=== PATIENT | male | born 1945 | race Caucasian/White ===

== ENCOUNTER 2020-05-05 08:41 | Day surgery (SDC) | payer MEDICARE, BC ==
[~2020-05-05 08:41] MED LIST: Cefuroxime 10 MG/ML SYRINGE EYERT SCH; Lidocaine 1% PF 2 ML SDV INJECT SCH; Ofloxacin 0.3% Ophth Soln 5 ML Bottle EYERT SCH; Pilocarpine 4% Ophth Soln 15 ML Bot EYERT SCH; Polymyxin B/Trimethoprim 10 ML Bottle EYERT SCH
[2020-05-05] MEDS: Ofloxacin 0.3% Ophth Soln 5 ML Bottle EYERT SCH ×2 (10:08→10:52)
[2020-05-05] MEDS: Brimonidine 0.2% Ophth Soln 5 ML Bottle EYERT SCH ×3 (10:13→12:05)
[2020-05-05] MEDS: Phenylephrine 2.5% Ophth Soln 2 ML Bot EYERT SCH ×5 (10:18→11:40)
[2020-05-05] MEDS: Tropicamide 1% Ophth Soln 15 ML Bottle EYERT SCH ×4 (10:24→11:10)
--- NOTE | 2020-05-05 10:27 | PCM.PREANE ---
Preanesthetic Assessment - Procedure Proposed Procedure: right eye cataract with IOL - Anesthesia/Transfusion/Family Hx Anesthesia History: Prior Anesthesia Reaction (nausea, apnea with inplant procedure) Family History of Anesthesia Reaction: No Transfusion History: No Prior Transfusion(s) - Review of Systems General: No Symptoms Pulmonary: No Symptoms Cardiovascular: No Symptoms Gastrointestinal: Abdominal Pain (hunger pains) Neurological: No Symptoms Other: Reports: None, Diabetes (A1C 6-7 non-insuline) - Physical Assessment NPO Status Date: 05/04/20 NPO Status Time: 22:00 Vital Signs: Last Vital Signs Temp 36.6 C 05/05/20 10:00 Pulse 61 05/05/20 10:00 Resp 16 05/05/20 10:00 BP 134/80 05/05/20 10:00 Pulse Ox 98 05/05/20 10:00 Height: 1.78 m Weight: 77.111 kg ASA Class: 3 Mental Status: Alert & Oriented x3 Airway Class: Mallampati = 1 Dentition: Reports: Normal Dentition Thyro-Mental Finger Breadths: 3 Mouth Opening Finger Breadths: 3 ROM/Head Extension: Full Lungs: Clear to Auscultation, Normal Respiratory Effort Cardiovascular: Regular Rate, Regular Rhythm, Murmurs (systolic) - Allergies Allergies/Adverse Reactions: Allergies Allergy/AdvReac Type Severity Reaction Status Date / Time hydrocodone Allergy Rash Verified 05/04/20 15:48 oxycodone Allergy Rash Verified 05/04/20 15:48 Sulfa (Sulfonamide Allergy Rash Verified 05/04/20 15:48 Antibiotics) - Blood Blood Available: No Product(s) Available: None - Anesthesia Plan Pre-Op Medication Ordered: None - Acknowledgements Anesthesia Type Planned: MAC Pt an Appropriate Candidate for the Planned Anesthesia: Yes Alternatives and Risks of Anesthesia Discussed w Pt/Guardian: Yes Pt/Guardian Understands and Agrees with Anesthesia Plan: Yes PreAnesthesia Questionnaire - SUBSTANCE USE Smoking Status *Q: Former Smoker Tobacco Use Within Last Twelve Months: No Second Hand Smoke Exposure: No Days Per Week of Alcohol Use: 1 Number of Drinks Per Day: 1 Total Drinks Per Week: 1 Recreational Drug Use History: No - HOME MEDS Home Medications: Home Meds Acetaminophen [Tylenol] 650 mg PO Q4H PRN 05/04/20 [History] Aspirin 325 mg PO DAILY 05/04/20 [History] Calcium Carbonate/Vitamin D3 [Calcium 600 + Vit D 200] 1 tab PO DAILY 05/04/20 [History] Carboxymethylcellulose Sodium [Artificial Tears] 1 dose EYEBOTH ASDIRECTED PRN 05/04/20 [History] Multivitamin [Multivitamins] 1 tab PO DAILY 05/04/20 [History] Ramipril 10 mg PO DAILY 05/04/20 [History] amLODIPine [Norvasc] 2.5 mg PO DAILY 05/04/20 [History] atorvaSTATin Calcium [Atorvastatin Calcium] 40 mg PO DAILY 05/04/20 [History] - CURRENT (IN HOUSE) MEDS Current Meds: Current Medications Brimonidine Tartrate (Alphagan 0.2% Ophth Soln) 0 ml EYERT ASDIRECTED NELA Stop: 05/05/20 18:00 Last Admin: 05/05/20 10:13 Dose: 1 drop Documented by: Cefuroxime Sodium (Zinacef) 0 mg EYERT ASDIRECTED NELA Stop: 05/05/20 18:00 Lidocaine HCl (Xylocaine-Mpf 1%) 0 ml INJECT ASDIRECTED NELA Stop: 05/05/20 18:00 Ofloxacin (Ocuflox 0.3% Ophth Soln) 0 ml EYERT ASDIRECTED NELA Stop: 05/05/20 18:00 Last Admin: 05/05/20 10:08 Dose: 1 drop Documented by: Phenylephrine HCl (Javier-Synephrine 2.5% Ophth Soln) 0 ml EYERT ASDIRECTED NELA Stop: 05/05/20 18:00 Last Admin: 05/05/20 10:18 Dose: 1 drop Documented by: Pilocarpine HCl (Pilocar 4% Ophth Soln) 0 ml EYERT ASDIRECTED NELA Stop: 05/05/20 18:00 Tetracaine HCl (Tetracaine 0.5% Steri-Unit Kellie) 0 ml EYEBOTH ASDIRECTED NELA Stop: 05/05/20 18:00 Tropicamide (Mydriacyl 1% Ophth Soln) 0 ml EYERT ASDIRECTED NELA Stop: 05/05/20 18:00 Discontinued Medications Ofloxacin (Ocuflox 0.3% Ophth Soln) 0 ml EYERT ASDIRECTED NELA Stop: 05/05/20 18:00
[2020-05-05] MEDS: Tetracaine HCl/PF 0.5% 4 ML Bottle EYEBOTH SCH ×2 (11:20→12:00)
--- NOTE | 2020-05-05 12:08 | PCM48HPAN ---
Post Anesthesia Note - EVALUATION WITHIN 48HRS OF ANESTHETIC Vital Signs in Normal Range: Yes Patient Participated in Evaluation: Yes Respiratory Function Stable: Yes Airway Patent: Yes Cardiovascular Function Stable: Yes Hydration Status Stable: Yes Pain Control Satisfactory: Yes Nausea and Vomiting Control Satisfactory: Yes Mental Status Recovered: Yes Vital Signs: Last Vital Signs Temp 36.6 C 05/05/20 10:00 Pulse 61 05/05/20 10:00 Resp 16 05/05/20 10:00 BP 134/80 05/05/20 10:00 Pulse Ox 98 05/05/20 10:00
== END 2020-05-05 12:18 | disposition home or self-care (01) ==
LOC: JD.SDS 08:41
PROVIDERS: ATTEND Ophthalmology
DX: E11.36 Type 2 diabetes mellitus with diabetic cataract (principal); H25.813 Combined forms of age-related cataract, bilateral; H34.8310 Tributary (branch) retinal vein occlusion, right eye, with macular edema; H40.041 Steroid responder, right eye; H02.834 Dermatochalasis of left upper eyelid; H02.831 Dermatochalasis of right upper eyelid; H16.103 Unspecified superficial keratitis, bilateral; H16.223 Keratoconjunctivitis sicca, not specified as Sjogren's, bilateral; E78.00 Pure hypercholesterolemia, unspecified; I10 Essential (primary) hypertension; Z87.891 Personal history of nicotine dependence; Z88.2 Allergy status to sulfonamides; Z88.5 Allergy status to narcotic agent; Z88.6 Allergy status to analgesic agent; Z79.82 Long term (current) use of aspirin; Z79.899 Other long term (current) drug therapy
CPT/HCPCS: 66984; J0697; J2001; A9270-GY; C1780

== ENCOUNTER → 2022-05-17 | Day surgery (SDC) | payer MEDICARE, OTHER ==
[~2022-05-17] MED LIST changes: +Bupivacaine 0.5% 30 ML SDV ONE; -Cefuroxime 10 MG/ML SYRINGE EYERT SCH; +EPINEPHrine 1 MG/ML SDV ONE; +Lactated Ringers 1,000 ML IV SCH; +Lidocaine 1% 2 ML ONE; +Lidocaine 1% 4 ML ONE; -Lidocaine 1% PF 2 ML SDV INJECT SCH; +Lidocaine 1%/Sod Bicarbonate in NS 8.4% 1 ML Syringe IDERM PRN; +Morphine 8 MG, EPINEPHrine 0.3 MG, Cefuroxime 750 MG, Ketorolac 30 MG, Sodium Chloride ... PRN; -Ofloxacin 0.3% Ophth Soln 5 ML Bottle EYERT SCH; +Ondansetron 4 MG/2 ML SDV IVPUSH PRN; +Ondansetron 4 MG/2 ML SDV ONE; +Phenylephrine HCl In 0.9% NaCl 1 MG/10 ML Vial ONE; -Pilocarpine 4% Ophth Soln 15 ML Bot EYERT SCH; -Polymyxin B/Trimethoprim 10 ML Bottle EYERT SCH; +Propofol 200 MG/20 ML SDV ONE; +Rocuronium 50 MG/5 ML Vial ONE; +Ropivacaine 0.5% 5 MG/ML 30 ML SDV ONE; +Scopolamine 1.5 MG Transdermal Patch TRDERM PRN; +Sodium Chloride 0.9% 10 ML Syringe FLUSH PRN; +Sodium Chloride 0.9% 10 ML Syringe FLUSH SCH; +Sugammadex Sodium 200 MG/2 ML VIAL ONE; +Vancomycin 1 GM SDV ONE; +ceFAZolin 2 GM Vial ONE; +fentaNYL 100 MCG/2 ML SDV IVPUSH PRN; +fentaNYL 250 MCG/5 ML SDV ONE; +oxyCODONE 5 MG Tab PO PRN; +traMADol 50 MG Tab PO STA
== END | disposition home or self-care (01) ==
LOC: JD.SDS 08:46
PROVIDERS: ATTEND Orthopaedic Surgery
DX: M17.12 Unilateral primary osteoarthritis, left knee (principal); I10 Essential (primary) hypertension; E11.9 Type 2 diabetes mellitus without complications; E78.5 Hyperlipidemia, unspecified; D64.9 Anemia, unspecified; G47.33 Obstructive sleep apnea (adult) (pediatric); E03.9 Hypothyroidism, unspecified; I25.10 Atherosclerotic heart disease of native coronary artery without angina pectoris; Z88.2 Allergy status to sulfonamides; Z88.5 Allergy status to narcotic agent; Z79.02 Long term (current) use of antithrombotics/antiplatelets; Z79.899 Other long term (current) drug therapy; Z98.890 Other specified postprocedural states; Z87.891 Personal history of nicotine dependence; Z79.811 Long term (current) use of aromatase inhibitors
CPT/HCPCS: 0055T; 27447; 36415; 64447; 73560; 82947; 85025; 97110; 97116; 97161; A9270; C1713; C1776; J0171; J0690; J0697; J1885; J2270; J2405; J2704; J2795; J3010; J3370; J3490; J7120; 01402; 64450; 76942; 99100

== ENCOUNTER 2024-03-24 08:53 | Day surgery (SDC) | payer MEDICARE, OTHER ==
[~2024-03-24 08:53] MED LIST changes: -Bupivacaine 0.5% 30 ML SDV ONE; -EPINEPHrine 1 MG/ML SDV ONE; -Lactated Ringers 1,000 ML IV SCH; -Lidocaine 1% 2 ML ONE; -Lidocaine 1% 4 ML ONE; -Lidocaine 1%/Sod Bicarbonate in NS 8.4% 1 ML Syringe IDERM PRN; -Morphine 8 MG, EPINEPHrine 0.3 MG, Cefuroxime 750 MG, Ketorolac 30 MG, Sodium Chloride ... PRN; -Ondansetron 4 MG/2 ML SDV IVPUSH PRN; -Ondansetron 4 MG/2 ML SDV ONE; -Phenylephrine HCl In 0.9% NaCl 1 MG/10 ML Vial ONE; -Propofol 200 MG/20 ML SDV ONE; -Rocuronium 50 MG/5 ML Vial ONE; -Ropivacaine 0.5% 5 MG/ML 30 ML SDV ONE; -Scopolamine 1.5 MG Transdermal Patch TRDERM PRN; -Sugammadex Sodium 200 MG/2 ML VIAL ONE; -Vancomycin 1 GM SDV ONE; -ceFAZolin 2 GM Vial ONE; -fentaNYL 100 MCG/2 ML SDV IVPUSH PRN; -fentaNYL 250 MCG/5 ML SDV ONE; -oxyCODONE 5 MG Tab PO PRN; -traMADol 50 MG Tab PO STA
[2024-03-24] MEDS ORDERED: Propofol 200 MG/20 ML SDV ONE (11:08)
[2024-03-24] MEDS ORDERED: Lidocaine 1% 4 ML ONE (11:12)
[2024-03-24] MEDS: Lactated Ringers 1,000 ML IV SCH (11:30)
[2024-03-24] MEDS ORDERED: fentaNYL 100 MCG/2 ML SDV ONE (12:11)
== END 2024-03-24 13:33 | disposition home or self-care (01) ==
LOC: JD.SDS 08:53
PROVIDERS: ATTEND Surgery
DX: Z12.11 Encounter for screening for malignant neoplasm of colon (principal); D12.2 Benign neoplasm of ascending colon; K57.30 Diverticulosis of large intestine without perforation or abscess without bleeding; E11.9 Type 2 diabetes mellitus without complications; I10 Essential (primary) hypertension; E78.00 Pure hypercholesterolemia, unspecified; Z87.891 Personal history of nicotine dependence; Z79.82 Long term (current) use of aspirin; Z79.84 Long term (current) use of oral hypoglycemic drugs; Z79.899 Other long term (current) drug therapy; Z88.2 Allergy status to sulfonamides; Z88.5 Allergy status to narcotic agent
CPT/HCPCS: 45380; 82947; 88305; J1596; J2704; J3010; J7120; 00811; 99100; J3490